=== PATIENT | female | born 1970 | race Caucasian/White ===

== ENCOUNTER 2016-09-11 15:08 | Inpatient (IN) | payer OTHER ==
[2016-09-11 17:09] VITALS: BMI 20.9
--- NOTE | 2016-09-11 19:53 | HP ---
[id number] Extend Anxiety: 4-Mod. Anxious/Guarded Agitation: 4-Moderately Restless Paroxysmal Sweats: 1-Minimal Palms Moist Orientation: 1-Uncertain about Date Tacttile Disturbances: 2-Mild Itch/Numbness/Burn Auditory Disturbances: 0-None Visual Disturbances: 0-None Headache: 0-None Present CIWA-Ar Total Score: 18 Admission ROS BHS - HPI Chief Complaint: WITHDRAWAL SX Allergies/Adverse Reactions: Allergies Allergy/AdvReac Type Severity Reaction Status Date / Time No Known Allergies Allergy Verified 09/11/16 19:53 History of Present Illness: 46 YEARS OLD FEMALE WITH LONG HISTORY OF ALCOHOL NICOTINE DEPENDENCE ON METHADONE PROGRAM 50 MG LAST DOSE 09/11/16 IS ADMITTED TO DETOX Exam Limitations: No Limitations - Ebola screening Have you traveled outside of the country in the last 21 days: No Have you had contact with anyone from an Ebola affected area: No Have you been sick,other than usual withdrawal symptoms: No - Review of Systems Constitutional: Chills, Loss of Appetite, Changes in sleep, Unintentional Wgt. Loss EENT: reports: No Symptoms Reported Respiratory: reports: No Symptoms reported Cardiac: reports: No Symptoms Reported GI: reports: Nausea, Poor Appetite, Poor Fluid Intake, Vomiting, Indigestion, Abdominal cramping : reports: No Symptoms Reported Musculoskeletal: reports: Back Pain Integumentary: reports: Other (MULTIPLE SUPERFICIAL SKIN ABRASION ON HANDS FACE FROM PHYSICAL ALTERACATION WEEK+ AGO) Neuro: reports: No Symptoms reported Endocrine: reports: No Symptoms Reported Hematology: reports: No Symptoms Reported Psychiatric: reports: Judgement Intact, Depressed Other Systems: Reviewed and Negative Patient History - Patient Medical History Hx Anemia: No Hx Asthma: No Hx Chronic Obstructive Pulmonary Disease (COPD): No Hx Cancer: No Hx Cardiac Disorders: No Hx Congestive Heart Failure: No Hx Hypertension: No Hx Hypercholesterolemia: No Hx Pacemaker: No HX Cerebrovascular Accident: No Hx Seizures: No Hx Dementia: No Hx Diabetes: No Hx Gastrointestinal Disorders: No Hx Liver Disease: No Hx Genitourinary Disorders: No Hx Sexually Transmitted Disorders: No Hx Renal Disease (ESRD): No Hx Thyroid Disease: No Hx Human Immunodeficiency Virus (HIV): No (11/13) Hx Hepatitis C: No Hx Depression: No Hx Suicide Attempt: No Hx Bipolar Disorder: Yes (AND ANXIETY DISORDER) Hx Schizophrenia: No - Patient Surgical History Past Surgical History: No Hx Neurologic Surgery: No Hx Cataract Extraction: No Hx Cardiac Surgery: No Hx Lung Surgery: No Hx Breast Surgery: No Hx Breast Biopsy: No Hx Abdominal Surgery: No Hx Appendectomy: No Hx Cholecystectomy: No Hx Genitourinary Surgery: No Hx Section: No Hx Orthopedic Surgery: No Hx Hysterectomy: No - PPD History Previous Implant?: Yes Documented Results: Negative w/proof Implanted On Prior [facility] Admission?: Yes Date: 04/04/16 PPD to be Administered?: No - Reproductive History Patient is a Female of Child Bearing Age (11 -55 yrs old): Yes Last Menstrual Period: 08/10/16 Patient : No - Smoking Cessation Smoking history: Never smoked Have you smoked in the past 12 months: No Aproximately how many cigarettes per day: 10 Cigars Per Day: 0 Hx Chewing Tobacco Use: No Initiated information on smoking cessation: Yes 'Breaking Loose' booklet given: 09/11/16 - Substance & Tx. History Hx Alcohol Use: Yes Hx Substance Use: Yes Substance Use Type: Alcohol, Cocaine, Opiates Hx Substance Use Treatment: Yes - Substances Abused Alcohol Route: Oral Frequency: Daily Amount used: PINT VOLKA + Age of first use: 15 Date of Last Use: 09/11/16 Family Disease History - Family Disease History Family Disease History: Other: Sister (dsa,alcohol) Admission Physical Exam S - Vital Signs Vital Signs: Vital Signs - 24 hr 09/11/16 17:05 Temperature 98.2 F Pulse Rate 75 Respiratory 20 Rate Blood Pressure 106/62 - Physical General Appearance: Yes: Appropriately Dressed, Mild Distress, Thin, Tremorous, Irritable, Sweating, Anxious HEENTM: Yes: Hearing grossly Normal, Normal ENT Inspection, Normocephalic, Normal Voice Respiratory: Yes: Chest Non-Tender, Lungs Clear, Normal Breath Sounds, No Respiratory Distress, No Accessory Muscle Use Neck: Yes: Supple, Trachea in good position Breast: Yes: Breasts Symetrical Cardiology: Yes: Regular Rhythm, Regular Rate, S1, S2 Abdominal: Yes: Non Tender, Soft Genitourinary: Yes: Within Normal Limits Back: Yes: Normal Inspection, Vertebral Tenderness Musculoskeletal: Yes: full range of Motion, Gait Steady Extremities: Yes: Normal Range of Motion, Non-Tender, Tremors, Other (multiple superficial scratches on face hands and neck) Neurological: Yes: Alert, Motor Strength 5/5, Normal Response, Depressed Affect Integumentary: Yes: Warm, Moist Lymphatic: Yes: Within Normal Limits - Diagnostic (1) Nicotine dependence Current Visit: Yes Status: Acute Qualifiers: Nicotine product type: cigarettes Substance use status: uncomplicated Qualified Code(s): F17.210 - Nicotine dependence, cigarettes, uncomplicated (2) Alcohol dependence with uncomplicated withdrawal Current Visit: Yes Status: Acute (3) Bipolar II disorder Current Visit: Yes Status: Suspected (4) Weight decreased Current Visit: Yes Status: Acute (5) Abrasion of skin Current Visit: Yes Status: Acute (6) Methadone maintenance therapy patient Current Visit: Yes Status: Acute Comment: 50 MG WAITING FOR VERIFICATION Cleared for Admission S - Detox or Rehab [facility] Level of Care: Medically Managed Detox Regimen/Protocol: Librium [facility] Breath Alcohol Content Breath Alcohol Content: 0 Urine Pregancy Test - Result Urine Test Results: Negative- NO Line Present Urine Drug Screen - Results Drug Screen Negative: No Urine Drug Screen Results: LASHON-Cocaine, OPI-Opiates, MTD-Methadone
[2016-09-11] MEDS ORDERED: guaiFENesin/D-METHORPHAN HB 10 ML UNIT-DOSE CUPS PO PRN (19:55)
[2016-09-11] MEDS ORDERED: MAGNESIUM HYDROX 2400MG/30ML ORAL SUSPENSION 30 ML CUP PO PRN (19:55)
[2016-09-11] MEDS ORDERED: MAG HYDROX/AL HYDROX/SIMETH 30 ML UNIT-DOSE CUP PO PRN (19:55)
[2016-09-11] MEDS ORDERED: MAGNESIUM CITRATE 300 ML BOTTLE PO PRN (19:55)
[2016-09-11] MEDS ORDERED: MENTHOL/PHENOL 1 EACH UD MM PRN (19:55)
[2016-09-11] MEDS ORDERED: diphenhydrAMINE HCL 50 MG CAPSULE PO PRN (19:55)
[2016-09-11] MEDS ORDERED: chlordiazePOXIDE HCL 25 MG CAPSULE PO PRN (19:55)
[2016-09-11] MEDS ORDERED: chlordiazePOXIDE HCL 25 MG CAPSULE PO ONE (19:55)
[2016-09-11] MEDS ORDERED: NICOTINE POLACRILEX 2 MG GUM BC PRN (19:55)
[2016-09-11] MEDS ORDERED: ACETAMINOPHEN 325 MG TABLET (FP) PO PRN (19:55)
[2016-09-11] MEDS ORDERED: P-EPHED 60MG/TRIPROLIDI 2.5MG TABLET PO PRN (19:55)
[2016-09-11] MEDS ORDERED: IBUPROFEN 400 MG TABLET (FP) PO PRN (19:55)
[2016-09-11] MEDS ORDERED: LOPERAMIDE HCL 2 MG CAPSULE PO PRN (19:55)
[2016-09-11] MEDS ORDERED: COLLOIDAL OATMEAL 1 BAR EACH TP PRN (19:56)
[2016-09-11] MEDS ORDERED: ONDANSETRON *ODT* 4 MG TABLET SL PRN (19:57)
[2016-09-11] MEDS: THIAMINE HCL 100 MG TABLET (FP) PO SCH (22:43)
[2016-09-11] MEDS: chlordiazePOXIDE HCL 25 MG CAPSULE PO SCH (22:43)
[2016-09-11] MEDS: BACITRACIN 0.9 GM PACKET TP PRN (22:43)
[2016-09-11] MEDS: MINERAL OIL/PETROLAT/WATER TOPICAL CREAM 113 GM JAR TP SCH (22:45)
[2016-09-11 23:18] LABS: URINE APPEARANCE CLEAR; URINE BILIRUBIN NEGATIVE (NEGATIVE); URINE BLOOD NEGATIVE (NEGATIVE); URINE COLOR YELLOW; URINE GLUCOSE (UA) NEGATIVE (NEGATIVE); URINE KETONE NEGATIVE (NEGATIVE); URINE LEUK ESTERASE NEGATIVE (NEGATIVE); URINE NITRITE NEGATIVE (NEGATIVE); URINE PROTEIN NEGATIVE (NEGATIVE); URINE UROBILINOGEN 1.0 E.U/dl E.U./dl (0.2-1.0)
[2016-09-12] MEDS: chlordiazePOXIDE HCL 25 MG CAPSULE PO SCH ×4 (06:30→22:33)
--- NOTE | 2016-09-12 07:16 | PN ---
S Progress Note Note: ASKED TO SEE PT 46 Y.O FEMALE HERE FOR ALCOHOLISM NOW WITH FEVER 101.7. C/O CHILLS, SHAKES. DENIES ANY OTHER COMPLAINTS, RECENT ILLNESSES, OR SIGNIFICANT PMHX. SHE IS ALSO OPIOID DEPENDENT ON MMTP. PENDING DOES VERIFICATION. SEEN LYING IN BED NAD IRRITABLE, AWAKE, ALERT, ORIENTED HEENT: MMM, PHARNXY CLEAR NO REDNESS, NO LAD, LUNGS: CTA B/L; 02 SAT 97 % RA ABD: BS X4 SOFT NT Vital Signs - 24 hr 09/11/16 09/11/16 09/12/16 17:05 21:46 00:30 Temperature 98.2 F 98.4 F Pulse Rate 75 64 Respiratory 20 16 18 Rate Blood Pressure 106/62 100/57 09/12/16 09/12/16 03:30 06:00 Temperature 101.7 F H Pulse Rate 83 Respiratory 18 16 Rate Blood Pressure 98/65 A- FEVER, WITHDRAWAL SX' P- C/W DETOX MOTRIN/TYLENOL ORDERED PO HYDRATION MONITOR FOR CLOSELY
[2016-09-12] MEDS ORDERED: METHADONE HCL 10 MG TABLET PO ONE (09:06)
[2016-09-12] MEDS ORDERED: METHADONE 40 MG, METHADONE 10 MG PO ONE (09:25)
--- NOTE | 2016-09-12 09:39 | CONSULT ---
[facility] Psychiatric Consult - Data Date of interview: 09/12/16 Admission source: [facility] Identifying data: This is 46 years old female with history of Bipolar disorder, Schizoaffective disorder, intoxicated with: Alcohol, Cocaine, Opioids and Nicotine, history of psychiatric hospitalizations Substance Abuse History: Drug Screen Negative: No. Urine Drug Screen Results: LASHON-Cocaine, OPI-Opiates, MTD-Methadone. - Smoking Cessation. Smoking history : Never smoked. Have you smoked in the past 12 months: No. Aproximately how many cigarettes per day: 10. Cigars Per Day: 0. Hx Chewing Tobacco Use: No. Initiated information on smoking cessation: Yes. 'Breaking Loose' booklet given : 09/11/16. - Substance & Tx. History. Hx Alcohol Use: Yes. Hx Substance Use : Yes. Substance Use Type: Alcohol, Cocaine, Opiates. Hx Substance Use Treatment: Yes. - Substances Abused. Alcohol. Route: Oral. Frequency: Daily. Amount used: PINT VOLKA +. Age of first use: 15. Date of Last Use: 06/18 Medical History: Syncope history, Weight loss history,. MMTP 80mg/day. Psychiatric History: Patient reports history bof Bipolar Disorder withb recent 2017 psychiatric admsision [facility]ilo villavicencio, reports currently btaking: Seroquel 150mg po qhs. Prozac 29mg poqd Physical/Sexual Abuse/Trauma History: Denies Additional Comment: Drug Screen Negative: No. Urine Drug Screen Results: LASHON- Cocaine, OPI-Opiates, MTD-Methadone Mental Status Exam - Mental Status Exam Alert and Oriented to: Person Cognitive Function: Fair Patient Appearance: Unkempt Mood: Sad Affect: Flat Patient Behavior: Sedated Speech Pattern: Delayed Voice Loudness: Normal Thought Process: Circumstantial Thought Disorder: Being Controlled Hallucinations: Denies Suicidal Ideation: Denies Homicidal Ideation: Denies Insight/Judgement: Fair Sleep: Difficulty falling asleep Appetite: Weight loss Muscle strength/Tone: Normal Gait/Station: Normal Additional Comments: Seroquel 150mg po qhs. Prozac 29mg poqd Psychiatric Findings - Problem List ([place] 1, 2,3) (1) Weight decreased Current Visit: No Status: Acute (2) Alcohol dependence Current Visit: No Status: Chronic (3) Anxiety disorder Current Visit: No Status: Chronic (4) Bipolar disorder Current Visit: No Status: Chronic (5) Cocaine dependence Current Visit: No Status: Chronic Qualifiers: Substance use status: in withdrawal Qualified Code(s): F14.23 - Cocaine dependence with withdrawal (6) Depression Current Visit: No Status: Chronic (7) Drug-induced mood disorder Current Visit: No Status: Chronic (8) Methadone maintenance therapy patient Current Visit: No Status: Chronic Comment: 80 MG WAITING FOR VERIFICATION (9) Nicotine dependence Current Visit: No Status: Chronic Qualifiers: Nicotine product type: cigarettes Substance use status: uncomplicated Qualified Code(s): F17.210 - Nicotine dependence, cigarettes, uncomplicated (10) Opioid dependence Current Visit: No Status: Chronic (11) Opioid dependence on agonist therapy Current Visit: No Status: Chronic (12) Schizoaffective disorder Current Visit: No Status: Chronic (13) Schizophrenia Current Visit: No Status: Chronic (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 Prozac 29mg poqd
[2016-09-12 10:01] LABS: MCH 30.2 pg (25.7-33.7); MCHC 33.4 g/dl (32.0-36.0); MEAN CELL VOLUME 90.3 fl (80-96); MEAN PLT VOLUME 7.2 fl (7.5-11.1); PLATELET COUNT 248 K/MM3 (134-434); RDW 14.1 % (11.6-15.6); WHITE BLOOD COUNT 6.6 K/mm3 (4.0-10.0)
[2016-09-12 10:23] LABS: ALBUMIN 2.9 g/dl (3.4-5.0); ALK PHOS 42 U/L (45-117); ANION GAP 8 (8-16); BILIRUBIN,TOTAL 0.1 mg/dL (0.2-1.0); CALCIUM 8.6 mg/dL (8.5-10.1); CO2 28 mmol/L (21-32); CREATININE 0.7 mg/dL (0.55-1.02); GLUCOSE,RANDOM 100 mg/dL (74-106); SGOT/AST 18 U/L (15-37); SGPT/ALT 17 U/L (12-78); TOT PROT 6.2 g/dl (6.4-8.2)
--- NOTE | 2016-09-12 10:23 | EKG ---
Test Reason : Blood Pressure : / mmHG Vent. Rate : 051 BPM Atrial Rate : 051 BPM P-R Int : 134 ms QRS Dur : 084 ms QT Int : 476 ms P-R-T Axes : 042 085 050 degrees QTc Int : 438 ms SINUS BRADYCARDIA OTHERWISE NORMAL ECG NO PREVIOUS ECGS AVAILABLE Confirmed by ANYA JEAN, BRITTNEY ([id number]) on 09/12/2016 10:23:39 AM Referred By: Confirmed By:BRITTNEY JOYNER MD
[2016-09-12 10:24] LABS: HIV 1 & 2 AB NEGATIVE; HIV 1 AGp24 NEGATIVE
[2016-09-12] MEDS: PRENATAL VITAMINS W/ FOLIC ACID TABLET (FP) PO SCH (10:35)
[2016-09-12] MEDS ORDERED: METHADONE HCL 10 MG TABLET ONE (10:36)
[2016-09-12] MEDS ORDERED: METHADONE HCL 40 MG DISPERSABLE TABLET ONE (10:36)
[2016-09-12] MEDS: FLUoxetine HCL 20 MG CAPSULE (FP) PO SCH (10:37)
[2016-09-12] MEDS: NICOTINE 14 MG/24 HOURS TOPICAL PATCH TD SCH (10:37)
--- NOTE | 2016-09-12 11:22 | PN ---
[facility] CIWA - CIWA Score Nausea/Vomitin Muscle Tremors: 2 Anxiety: 3 Agitation: 3 Paroxysmal Sweats: 3 Orientation: 0-Oriented Tacttile Disturbances: 2-Mild Itch/Numbness/Burn Auditory Disturbances: 0-None Visual Disturbances: 0-None Headache: 0-None Present CIWA-Ar Total Score: 15 [facility] Progress Note (SOAP) Subjective: interrupted sleep, sweats , body aches Objective: 09/12/16 11:18 Vital Signs Temperature 97.5 F L 09/12/16 10:24 Pulse Rate 83 09/12/16 10:24 Respiratory Rate 18 09/12/16 10:24 Blood Pressure 118/60 09/12/16 10:24 O2 Sat by Pulse Oximetry (%) Laboratory Tests 09/11/16 09/12/16 09/12/16 23:00 07:30 07:30 WBC 6.6 D RBC 3.92 Hgb 11.8 Hct 35.4 MCV 90.3 MCHC 33.4 RDW 14.1 Plt Count 248 MPV 7.2 L Sodium 140 Potassium 3.6 Chloride 104 Carbon Dioxide 28 Anion Gap 8 BUN 11 Creatinine 0.7 Creat Clearance w eGFR > 60 Random Glucose 100 Calcium 8.6 Total Bilirubin 0.1 L D AST 18 D ALT 17 D Alkaline Phosphatase 42 L Total Protein 6.2 L Albumin 2.9 L Urine Color Yellow Urine Appearance Clear Urine pH 6.0 Ur Specific [place] >= 1.030 Urine Protein Negative Urine Glucose (UA) Negative Urine Ketones Negative Urine Blood Negative Urine Nitrite Negative Urine Bilirubin Negative Urine Urobilinogen 1.0 e.u/dl Ur Leukocyte Esterase Negative RPR Titer HIV 1&2 Antibody Screen HIV P24 Antigen 09/12/16 09/12/16 07:30 07:30 WBC RBC Hgb Hct MCV MCHC RDW Plt Count MPV Sodium Potassium Chloride Carbon Dioxide Anion Gap BUN Creatinine Creat Clearance w eGFR Random Glucose Calcium Total Bilirubin AST ALT Alkaline Phosphatase Total Protein Albumin Urine Color Urine Appearance Urine pH Ur Specific [place] Urine Protein Urine Glucose (UA) Urine Ketones Urine Blood Urine Nitrite Urine Bilirubin Urine Urobilinogen Ur Leukocyte Esterase RPR Titer Nonreactive HIV 1&2 Antibody Screen Negative HIV P24 Antigen Negative pt aox3 in nad lying in bed 09/12/16 11:24 oral clear no exudate or eryhema lungs occas rhonchi cor rrr, w/o m r or gallop abd soft nontender , bs + generalized adenopathy Assessment: 09/12/16 11:19 withdrawl sx's fever 101.7 abrasion on nose Plan: cont detox increase fluids cxr bacitracin bid monitor temp.
[2016-09-12] MEDS: THIAMINE HCL 100 MG TABLET (FP) PO SCH (22:33)
[2016-09-12] MEDS: MINERAL OIL/PETROLAT/WATER TOPICAL CREAM 113 GM JAR TP SCH (22:35)
[2016-09-12] MEDS: QUEtiapine FUMARATE 50 MG TABLET PO SCH (23:38)
[2016-09-13] MEDS ORDERED: METHADONE HCL 10 MG TABLET ONE (04:15)
[2016-09-13] MEDS ORDERED: METHADONE HCL 40 MG DISPERSABLE TABLET ONE (04:15)
[2016-09-13] MEDS: METHADONE 40 MG, METHADONE 10 MG PO SCH (05:22)
[2016-09-13] MEDS: chlordiazePOXIDE HCL 25 MG CAPSULE PO SCH ×3 (05:22→17:55)
[2016-09-13] MEDS ORDERED: METHADONE HCL 40 MG DISPERSABLE TABLET PO SCH (06:00)
--- NOTE | 2016-09-13 09:48 | PN ---
S CIWA - CIWA Score Nausea/Vomitin Muscle Tremors: 2 Anxiety: 2 Agitation: 2 Paroxysmal Sweats: 2 Orientation: 0-Oriented Tacttile Disturbances: 1-Very Mild Itch/Numbness Auditory Disturbances: 0-None Visual Disturbances: 0-None Headache: 0-None Present CIWA-Ar Total Score: 11 [facility] Progress Note (SOAP) Subjective: sweats, interrupted sleep Objective: 09/13/16 09:48 Vital Signs Temperature 98.6 F 09/13/16 05:50 Pulse Rate 64 09/13/16 05:50 Respiratory Rate 16 09/13/16 05:50 Blood Pressure 106/60 09/13/16 05:50 O2 Sat by Pulse Oximetry (%) Laboratory Tests 09/11/16 09/12/16 09/12/16 23:00 07:30 07:30 WBC 6.6 D RBC 3.92 Hgb 11.8 Hct 35.4 MCV 90.3 MCHC 33.4 RDW 14.1 Plt Count 248 MPV 7.2 L Sodium 140 Potassium 3.6 Chloride 104 Carbon Dioxide 28 Anion Gap 8 BUN 11 Creatinine 0.7 Creat Clearance w eGFR > 60 Random Glucose 100 Calcium 8.6 Total Bilirubin 0.1 L D AST 18 D ALT 17 D Alkaline Phosphatase 42 L Total Protein 6.2 L Albumin 2.9 L Urine Color Yellow Urine Appearance Clear Urine pH 6.0 Ur Specific [place] >= 1.030 Urine Protein Negative Urine Glucose (UA) Negative Urine Ketones Negative Urine Blood Negative Urine Nitrite Negative Urine Bilirubin Negative Urine Urobilinogen 1.0 e.u/dl Ur Leukocyte Esterase Negative RPR Titer HIV 1&2 Antibody Screen HIV P24 Antigen 09/12/16 09/12/16 07:30 07:30 WBC RBC Hgb Hct MCV MCHC RDW Plt Count MPV Sodium Potassium Chloride Carbon Dioxide Anion Gap BUN Creatinine Creat Clearance w eGFR Random Glucose Calcium Total Bilirubin AST ALT Alkaline Phosphatase Total Protein Albumin Urine Color Urine Appearance Urine pH Ur Specific [place] Urine Protein Urine Glucose (UA) Urine Ketones Urine Blood Urine Nitrite Urine Bilirubin Urine Urobilinogen Ur Leukocyte Esterase RPR Titer Nonreactive HIV 1&2 Antibody Screen Negative HIV P24 Antigen Negative 09/13/16 14:47 pt aox3 in nad ambulating Assessment: 09/13/16 09:48 withdrawal sxs Plan: cont. detox increase fluids
[2016-09-13] MEDS: FLUoxetine HCL 20 MG CAPSULE (FP) PO SCH (11:07)
[2016-09-13] MEDS: NICOTINE 14 MG/24 HOURS TOPICAL PATCH TD SCH (11:07)
[2016-09-13] MEDS: PRENATAL VITAMINS W/ FOLIC ACID TABLET (FP) PO SCH (11:07)
[2016-09-13] MEDS: THIAMINE HCL 100 MG TABLET (FP) PO SCH (22:30)
[2016-09-13] MEDS: BACITRACIN 0.9 GM PACKET TP PRN (22:41)
[2016-09-13] MEDS: MINERAL OIL/PETROLAT/WATER TOPICAL CREAM 113 GM JAR TP SCH (22:41)
[2016-09-13] MEDS: QUEtiapine FUMARATE 50 MG TABLET PO SCH (22:42)
[2016-09-13] MEDS: chlordiazePOXIDE 5 MG CAPSULE PO SCH (22:42)
[2016-09-14] MEDS ORDERED: METHADONE HCL 10 MG TABLET ONE (04:38)
[2016-09-14] MEDS ORDERED: METHADONE HCL 40 MG DISPERSABLE TABLET ONE (04:39)
[2016-09-14] MEDS: METHADONE 40 MG, METHADONE 10 MG PO SCH (05:29)
[2016-09-14] MEDS: chlordiazePOXIDE 5 MG CAPSULE PO SCH ×3 (05:29→17:44)
--- NOTE | 2016-09-14 09:59 | PN ---
S Progress Note (SOAP) Subjective: ALERT,IRRITABLE,ANXIOUS,INTERRUPTED SLEEP Objective: 09/14/16 09:59 Vital Signs Temperature 98.4 F 09/14/16 06:19 Pulse Rate 71 09/14/16 06:19 Respiratory Rate 18 09/14/16 06:19 Blood Pressure 100/60 09/14/16 06:19 O2 Sat by Pulse Oximetry (%) Assessment: 09/14/16 09:59 WITHDRAWAL SYMPTOM Plan: CONTINUE DETOX,DISCHARGE IN AM
[2016-09-14] MEDS: FLUoxetine HCL 20 MG CAPSULE (FP) PO SCH (10:28)
[2016-09-14] MEDS: NICOTINE 14 MG/24 HOURS TOPICAL PATCH TD SCH (10:28)
[2016-09-14] MEDS: PRENATAL VITAMINS W/ FOLIC ACID TABLET (FP) PO SCH (10:28)
[2016-09-14] MEDS: THIAMINE HCL 100 MG TABLET (FP) PO SCH (22:55)
[2016-09-14] MEDS: QUEtiapine FUMARATE 50 MG TABLET PO SCH (22:55)
[2016-09-14] MEDS: MINERAL OIL/PETROLAT/WATER TOPICAL CREAM 113 GM JAR TP SCH (23:15)
[2016-09-14] MEDS: chlordiazePOXIDE HCL 10 MG CAPSULE PO SCH (23:19)
[2016-09-15] MEDS ORDERED: METHADONE HCL 40 MG DISPERSABLE TABLET ONE (06:19)
[2016-09-15] MEDS ORDERED: METHADONE HCL 10 MG TABLET ONE (06:19)
[2016-09-15] MEDS: METHADONE 40 MG, METHADONE 10 MG PO SCH (06:20)
[2016-09-15] MEDS: chlordiazePOXIDE HCL 10 MG CAPSULE PO SCH ×2 (06:21→11:59)
[2016-09-15 06:36] VITALS: PULSE 62; TEMP 97.7
--- NOTE | 2016-09-15 09:00 | PN ---
S Progress Note (SOAP) Subjective: ALERT,NO COMPLAINT Objective: 09/15/16 08:58 Vital Signs Temperature 97.7 F 09/15/16 06:00 Pulse Rate 62 09/15/16 06:00 Respiratory Rate 16 09/15/16 06:00 Blood Pressure 99/60 09/15/16 06:00 O2 Sat by Pulse Oximetry (%) Assessment: 09/15/16 08:59 DETOX COMPLETED,NO WITHDRAWAL SYMPTOM Plan: DISCHARGE TODAY,FOLLOW UP WITH AFTER CARE PROGRAM ARRANGEMENT
--- NOTE | 2016-09-15 09:01 | DS ---
[facility] Detox Discharge Summary Admission Date: 09/11/16 Discharge Date: 09/15/16 - History Present History: Alcohol Dependence, Cocaine Dependence, MMTP Additional Comments: FOLLOW UP WITH AFTER CARE PROGRAM ARRANGEMENT Pertinent Past History: MMTP BIPOLAR 2 DISORDER - Physical Exam Results Vital Signs: Vital Signs Temperature 97.7 F 09/15/16 06:00 Pulse Rate 62 09/15/16 06:00 Respiratory Rate 16 09/15/16 06:00 Blood Pressure 99/60 09/15/16 06:00 O2 Sat by Pulse Oximetry (%) Pertinent Admission Physical Exam Findings: WITHDRAWAL SYMPTOM - Treatment Hospital Course: Detox Protocol Followed, Detoxed Safely, Responded well, Discharged Condition Good Patient has Accepted a Rehab Referral to: DECLINED - Medication Discharge Medications: Ambulatory Orders Quetiapine Fumarate [Seroquel -] 100 mg PO HS 02/27/15 Methadone [Dolophine -] 80 mg PO DAILY 04/02/16 Fluoxetine HCl [Prozac -] 20 mg PO DAILY #30 capsule 04/30/16 Quetiapine Fumarate [Seroquel -] 150 mg PO HS #90 tablet 04/30/16 Fluoxetine HCl [Prozac -] 20 mg PO DAILY #30 capsule 09/12/16 Quetiapine Fumarate "Xr" [Seroquel Xr -] 150 mg PO HS #30 tab 09/12/16 - AMA Did Patient Leave Against Medical Advice: No
[2016-09-15 10:24] VITALS: BP 103/55
[2016-09-15] MEDS: PRENATAL VITAMINS W/ FOLIC ACID TABLET (FP) PO SCH (11:58)
[2016-09-15] MEDS: FLUoxetine HCL 20 MG CAPSULE (FP) PO SCH (11:58)
[2016-09-15] MEDS: NICOTINE 14 MG/24 HOURS TOPICAL PATCH TD SCH (11:58)
== END 2016-09-15 12:27 | disposition other institution (70) | DRG 773 ==
LOC: YASAS 15:08 → Y6N 20:07
PROVIDERS: ADMIT Internal Medicine Addiction Medicine; ATTEND Internal Medicine Addiction Medicine
PROC: HZ2ZZZZ Detoxification Services for Substance Abuse Treatment (ICD-10-PCS; principal; 2016-09-11)
DX: F10.230 Alcohol dependence with withdrawal, uncomplicated (principal); F11.20 Opioid dependence, uncomplicated; F14.20 Cocaine dependence, uncomplicated; F17.210 Nicotine dependence, cigarettes, uncomplicated; F31.81 Bipolar II disorder; F41.9 Anxiety disorder, unspecified; F32.9 Major depressive disorder, single episode, unspecified; F19.24 Other psychoactive substance dependence with psychoactive substance-induced mood disorder; F25.9 Schizoaffective disorder, unspecified; F20.9 Schizophrenia, unspecified; R50.9 Fever, unspecified; Z87.898 Personal history of other specified conditions; Z86.79 Personal history of other diseases of the circulatory system; Z59.0 Homelessness; S00.31XD Abrasion of nose, subsequent encounter; X58.XXXD Exposure to other specified factors, subsequent encounter
CPT/HCPCS: 36415; 71020-TC; 80053; 81003; 85027; 86593; 87389; 93005; 93010

== ENCOUNTER 2017-09-27 11:13 | Inpatient (IN) | payer OTHER ==
[2017-09-27 11:52] VITALS: BMI 20.7
--- NOTE | 2017-09-27 16:50 | HP ---
COWS - Scale Resting Pulse: 0= NM 80 or Below Sweatin=Flushed/Facial Moisture Restless Observation: 3= Extraneous Movement Pupil Size: 1= Pupils >than Normal Bone or Joint Aches: 2= Severe Diffuse Aches Runny Nose/ Eye Tearin= Runny Nose/Eyes GI Upset > 30mins: 5=Frequent Vomit/Diarrhea Tremor Observation: 2= Slight Tremor Visible Yawning Observation: 0= None Anxiety or Irritability: 2=Irritable/Anxious Goose Flesh Skin: 3=Piloerection COWS Score: 22 CIWA Score - CIWA Score Nausea/Vomitin-Int. Nausea w/Dry Heave Muscle Tremors: 4-Moderate,w/Arms Extend Anxiety: 4-Mod. Anxious/Guarded Agitation: 0-Normal Activity Paroxysmal Sweats: 4-Forehead w/Sweat Beads Orientation: 0-Oriented Tacttile Disturbances: 3-Moderate Itch/Numb/Burn (left foot) Auditory Disturbances: 0-None Visual Disturbances: 0-None Headache: 2-Mild CIWA-Ar Total Score: 21 Admission ROS S - HPI Chief Complaint: withdrawal symptoms Allergies/Adverse Reactions: Allergies Allergy/AdvReac Type Severity Reaction Status Date / Time No Known Allergies Allergy Verified 09/27/17 15:03 History of Present Illness: 47 yo female with hx of Heroin, Crack, oxycontin, and alcohol dependence, reports no other medical condition. Last Rehab was at [facility], July 2017. Longest period of sobriety 16 months. Exam Limitations: No Limitations - Ebola screening Have you traveled outside of the country in the last 21 days: No Have you had contact with anyone from an Ebola affected area: No Have you been sick,other than usual withdrawal symptoms: No Do you have a fever: No - Review of Systems Constitutional: Chills, Loss of Appetite, Unintentional Wgt. Loss (reports 30lb in the past 60 days) EENT: reports: Blurred Vision (wears reading glasses), Nose Congestion, Other ( missing teeth) Respiratory: reports: No Symptoms reported Cardiac: reports: No Symptoms Reported, Lightheadedness GI: reports: Diarrhea, Nausea, Vomiting, Other (heart burn) : reports: No Symptoms Reported Musculoskeletal: reports: Joint Pain Integumentary: reports: Sweating Neuro: reports: Headache, Tremors Endocrine: reports: Increased Thirst, Change in Weight Hematology: reports: Anemia Psychiatric: reports: Orientated x3, Anxious, Depressed Other Systems: Reviewed and Negative Patient History - Patient Medical History Hx Anemia: Yes Hx Asthma: No Hx Chronic Obstructive Pulmonary Disease (COPD): No Hx Cancer: No Hx Cardiac Disorders: No Hx Congestive Heart Failure: No Hx Hypertension: No Hx Hypercholesterolemia: No Hx Pacemaker: No HX Cerebrovascular Accident: No Hx Seizures: No Hx Dementia: No Hx Diabetes: No Hx Gastrointestinal Disorders: Yes (GERD ) Hx Liver Disease: No Hx Genitourinary Disorders: No Hx Sexually Transmitted Disorders: No Hx Renal Disease (ESRD): No Hx Thyroid Disease: No Hx Human Immunodeficiency Virus (HIV): No (11/13) Hx Hepatitis C: No Hx Depression: Yes (Reports was admitted to [facility] for Psych ) Hx Suicide Attempt: No Hx Bipolar Disorder: Yes (AND ANXIETY DISORDER) Hx Schizophrenia: No - Patient Surgical History Past Surgical History: No Hx Neurologic Surgery: No Hx Cataract Extraction: No Hx Cardiac Surgery: No Hx Lung Surgery: No Hx Breast Surgery: No Hx Breast Biopsy: No Hx Abdominal Surgery: No Hx Appendectomy: No Hx Cholecystectomy: No Hx Genitourinary Surgery: No Hx Section: No Hx Orthopedic Surgery: No Hx Hysterectomy: No Anesthesia Reaction: No - PPD History Previous Implant?: Yes Documented Results: Negative w/proof Implanted On Prior [facility] Admission?: Yes Date: 04/04/16 Results: 0mm - Reproductive History Patient is a Female of Child Bearing Age (11 -55 yrs old): No Last Menstrual Period: 09/10/17 Patient : No - Smoking Cessation Smoking history: Current every day smoker Have you smoked in the past 12 months: Yes Aproximately how many cigarettes per day: 20 Cigars Per Day: 0 Hx Chewing Tobacco Use: No Initiated information on smoking cessation: Yes 'Breaking Loose' booklet given: 09/27/17 - Substance & Tx. History Hx Alcohol Use: Yes Substance Use Type: Alcohol, Heroin, Opiates Hx Substance Use Treatment: Yes ([facility] Jul 2017) - Substances Abused Heroin Route: Inhalation Frequency: Daily Amount used: 7 bags Age of first use: 23 Date of Last Use: 09/26/17 Alcohol Route: Oral Frequency: Daily Amount used: vodka(less than a pint) Age of first use: 23 Date of Last Use: 09/26/17 Crack Route: Smoking Frequency: Daily Amount used: $200 Age of first use: 39 Date of Last Use: 09/24/17 Oxycontin Route: Oral Frequency: 3-6 times per week Amount used: 2 pills Age of first use: 23 Date of Last Use: 09/23/17 Family Disease History - Family Disease History Family Disease History: Heart Disease: Father (, [place]), Other: Father, Mother (alieve, Kidney diease, dialysis ), Sister (dsa,alcohol) Admission Physical Exam [facility] - Vital Signs Vital Signs: Vital Signs - 24 hr 09/27/17 11:49 Temperature 96.8 F L Pulse Rate 78 Respiratory 18 Rate Blood Pressure 122/70 - Physical General Appearance: Yes: Thin, Tremorous, Sweating, Anxious HEENTM: Yes: Hearing grossly Normal, Normal ENT Inspection, Normocephalic, Normal Voice, Pharynx Normal, Tm's normal Respiratory: Yes: Chest Non-Tender, Lungs Clear, Normal Breath Sounds, No Respiratory Distress, No Accessory Muscle Use Neck: Yes: No masses,lesions,Nodules, Trachea in good position Breast: Yes: Breast Exam Deferred Cardiology: Yes: Within Normal Limits, Regular Rhythm, Regular Rate, S1, S2 Abdominal: Yes: Normal Bowel Sounds, Non Tender, Flat, Soft Genitourinary: Yes: Within Normal Limits (reports no urinary symptoms) Back: Yes: Within Normal Limits, Normal Inspection Musculoskeletal: Yes: full range of Motion, Gait Steady, Pelvis Stable Extremities: Yes: Normal Capillary Refill, Normal Inspection, Normal Range of Motion, Non-Tender Neurological: Yes: paunch trimmer II-XII NML intact, Fully Oriented, Alert, Motor Strength 5/5, Normal Mood/Affect, Normal Response Integumentary: Yes: Normal Color, Dry, Warm, Other (dry mucous membranes, poor skin turgor) Lymphatic: Yes: Within Normal Limits - Diagnostic (1) Opioid dependence with withdrawal Current Visit: Yes Status: Acute (2) Dehydration Current Visit: Yes Status: Acute (3) Alcohol dependence with uncomplicated withdrawal Current Visit: No Status: Acute (4) Weight decreased Current Visit: No Status: Acute (5) Anxiety disorder Current Visit: No Status: Chronic (6) Cocaine dependence Current Visit: No Status: Chronic Qualifiers: Substance use status: in withdrawal Qualified Code(s): F14.23 - Cocaine dependence with withdrawal (7) Depression Current Visit: No Status: Chronic (8) Nicotine dependence Current Visit: No Status: Chronic Qualifiers: Nicotine product type: cigarettes Substance use status: uncomplicated Qualified Code(s): F17.210 - Nicotine dependence, cigarettes, uncomplicated Cleared for Admission S - Detox or Rehab [facility] Level of Care: Medically Managed Detox Regimen/Protocol: Methadone/Librium [facility] Breath Alcohol Content Breath Alcohol Content: 0 Urine Pregancy Test - Result Urine Test Results: Negative- NO Line Present Urine Drug Screen - Results Drug Screen Negative: No Urine Drug Screen Results: LASHON-Cocaine, OPI-Opiates
[2017-09-27] MEDS ORDERED: guaiFENesin/D-METHORPHAN HB 10 ML UNIT-DOSE CUPS PO PRN (17:04)
[2017-09-27] MEDS ORDERED: IBUPROFEN 400 MG TABLET (FP) PO PRN (17:04)
[2017-09-27] MEDS ORDERED: ACETAMINOPHEN 325 MG TABLET (FP) PO PRN (17:04)
[2017-09-27] MEDS ORDERED: LOPERAMIDE HCL 2 MG CAPSULE PO PRN (17:04)
[2017-09-27] MEDS ORDERED: MAGNESIUM HYDROX 2400MG/30ML ORAL SUSPENSION 30 ML CUP PO PRN (17:04)
[2017-09-27] MEDS ORDERED: P-EPHED 60MG/TRIPROLIDI 2.5MG TABLET PO PRN (17:04)
[2017-09-27] MEDS ORDERED: MAG HYDROX/AL HYDROX/SIMETH 30 ML UNIT-DOSE CUP PO PRN (17:04)
[2017-09-27] MEDS ORDERED: MENTHOL/PHENOL 1 EACH UD MM PRN (17:04)
[2017-09-27] MEDS ORDERED: MAGNESIUM CITRATE 300 ML BOTTLE PO PRN (17:04)
[2017-09-27] MEDS ORDERED: chlordiazePOXIDE HCL 25 MG CAPSULE PO PRN (17:04)
[2017-09-27] MEDS ORDERED: chlordiazePOXIDE HCL 25 MG CAPSULE PO ONE (17:45)
[2017-09-27] MEDS ORDERED: METHADONE HCL 10 MG TABLET (FOR DETOX USE ONLY) PO ONE ×2 (17:45→23:00)
[2017-09-27] MEDS: NICOTINE 21 MG/24 HOURS TOPICAL PATCH TD SCH (19:00)
[2017-09-27] MEDS: chlordiazePOXIDE HCL 25 MG CAPSULE PO SCH (22:29)
[2017-09-27] MEDS: THIAMINE HCL 100 MG TABLET (FP) PO SCH (22:29)
[2017-09-27 23:24] LABS: URINE APPEARANCE SLCLOUDY; URINE BILIRUBIN NEGATIVE (NEGATIVE); URINE BLOOD NEGATIVE (NEGATIVE); URINE COLOR LTYELLOW; URINE GLUCOSE (UA) NEGATIVE (NEGATIVE); URINE KETONE NEGATIVE (NEGATIVE); URINE LEUK ESTERASE NEGATIVE (NEGATIVE); URINE NITRITE NEGATIVE (NEGATIVE); URINE PROTEIN NEGATIVE (NEGATIVE); URINE UROBILINOGEN NEGATIVE mg/dL (0.2-1.0)
[2017-09-28] MEDS: chlordiazePOXIDE HCL 25 MG CAPSULE PO SCH ×4 (05:18→22:15)
[2017-09-28] MEDS ORDERED: METHADONE HCL 10 MG TABLET (FOR DETOX USE ONLY) PO SCH (10:00)
[2017-09-28 10:05] LABS: HEMATOCRIT 41.4 % (32.4-45.2); HEMOGLOBIN 13.9 GM/dL (10.7-15.3); MCH 31.2 pg (25.7-33.7); MCHC 33.6 g/dl (32.0-36.0); MEAN CELL VOLUME 92.8 fl (80-96); MEAN PLT VOLUME 7.4 fl (7.5-11.1); PLATELET COUNT 381 K/MM3 (134-434); RBC 4.46 M/mm3 (3.60-5.2); RDW 13.8 % (11.6-15.6); WHITE BLOOD COUNT 8.3 K/mm3 (4.0-10.0)
[2017-09-28 10:16] LABS: CHLORIDE 102 mmol/L (98-107); POTASSIUM 3.9 mmol/L (3.5-5.1); SODIUM 139 mmol/L (136-145)
[2017-09-28] MEDS: PRENATAL VITAMINS W/ FOLIC ACID TABLET (FP) PO SCH (10:25)
[2017-09-28] MEDS: NICOTINE 21 MG/24 HOURS TOPICAL PATCH TD SCH (10:25)
[2017-09-28 10:32] LABS: ALBUMIN 3.8 g/dl (3.4-5.0); ALK PHOS 47 U/L (45-117); ANION GAP 8 (8-16); BILIRUBIN,TOTAL 0.4 mg/dL (0.2-1.0); BLOOD UREA NITROGEN 13 mg/dL (7-18); CALCIUM 8.8 mg/dL (8.5-10.1); CO2 29 mmol/L (21-32); CREATININE 0.8 mg/dL (0.55-1.02); GLUCOSE,RANDOM 75 mg/dL (74-106); SGOT/AST 14 U/L (15-37); SGPT/ALT 20 U/L (12-78); TOT PROT 7.6 g/dl (6.4-8.2)
--- NOTE | 2017-09-28 12:08 | PN ---
S CIWA - CIWA Score Nausea/Vomitin Muscle Tremors: 4-Moderate,w/Arms Extend Anxiety: 3 Agitation: 4-Moderately Restless Paroxysmal Sweats: 3 Orientation: 0-Oriented Tacttile Disturbances: 0-None Auditory Disturbances: 0-None Visual Disturbances: 0-None Headache: 0-None Present CIWA-Ar Total Score: 17 BHS COWS - Scale Resting Pulse: 1= [place] 81-100 Sweatin=Flushed/Facial Moisture Restless Observation: 3= Extraneous Movement Pupil Size: 0= Normal to Room Light Bone or Joint Aches: 1= Mild Discomfort Runny Nose/ Eye Tearin= Nasal Congestion GI Upset > 30mins: 2= Nausea/Diarrhea Tremor Observation of Outstretched Hands: 2= Slight Tremor Visible Yawning Observation: 1= 1-2x During Session Anxiety or Irritability: 2=Irritable/Anxious Goose Flesh Skin: 0=Smooth Skin COWS Score: 15 S Progress Note (SOAP) Subjective: shakes sweats diarrhea Objective: 09/28/17 12:06 no acute distress Vital Signs Temperature 96.4 F L 09/28/17 11:12 Pulse Rate 90 09/28/17 11:12 Respiratory Rate 20 09/28/17 11:12 Blood Pressure 99/61 09/28/17 11:12 O2 Sat by Pulse Oximetry (%) Laboratory Last Values WBC 8.3 K/mm3 (4.0-10.0) 09/28/17 06:06 RBC 4.46 M/mm3 (3.60-5.2) 09/28/17 06:06 Hgb 13.9 GM/dL (10.7-15.3) D 09/28/17 06:06 Hct 41.4 % (32.4-45.2) D 09/28/17 06:06 MCV 92.8 fl (80-96) 09/28/17 06:06 MCH 31.2 pg (25.7-33.7) 09/28/17 06:06 MCHC 33.6 g/dl (32.0-36.0) 09/28/17 06:06 RDW 13.8 % (11.6-15.6) 09/28/17 06:06 Plt Count 381 K/MM3 (134-434) D 09/28/17 06:06 MPV 7.4 fl (7.5-11.1) L 09/28/17 06:06 Sodium 139 mmol/L (136-145) 09/28/17 06:06 Potassium 3.9 mmol/L (3.5-5.1) 09/28/17 06:06 Chloride 102 mmol/L (98-107) 09/28/17 06:06 Carbon Dioxide 29 mmol/L (21-32) 09/28/17 06:06 Anion Gap 8 (8-16) 09/28/17 06:06 BUN 13 mg/dL (7-18) 09/28/17 06:06 Creatinine 0.8 mg/dL (0.55-1.02) 09/28/17 06:06 Creat Clearance w eGFR > 60 (>60) 09/28/17 06:06 Random Glucose 75 mg/dL (74-106) 09/28/17 06:06 Calcium 8.8 mg/dL (8.5-10.1) 09/28/17 06:06 Total Bilirubin 0.4 mg/dL (0.2-1.0) D 09/28/17 06:06 AST 14 U/L (15-37) L 09/28/17 06:06 ALT 20 U/L (12-78) 09/28/17 06:06 Alkaline Phosphatase 47 U/L (45-117) 09/28/17 06:06 Total Protein 7.6 g/dl (6.4-8.2) 09/28/17 06:06 Albumin 3.8 g/dl (3.4-5.0) 09/28/17 06:06 Urine Color Ltyellow 09/27/17 23:13 Urine Appearance Slcloudy 09/27/17 23:13 Urine pH 8.0 (5.0-8.0) D 09/27/17 23:13 Ur Specific [place] 1.013 (1.001-1.035) 09/27/17 23:13 Urine Protein Negative (NEGATIVE) 09/27/17 23:13 Urine Glucose (UA) Negative (NEGATIVE) 09/27/17 23:13 Urine Ketones Negative (NEGATIVE) 09/27/17 23:13 Urine Blood Negative (NEGATIVE) 09/27/17 23:13 Urine Nitrite Negative (NEGATIVE) 09/27/17 23:13 Urine Bilirubin Negative (NEGATIVE) 09/27/17 23:13 Urine Urobilinogen Negative mg/dL (0.2-1.0) 09/27/17 23:13 Ur Leukocyte Esterase Negative (NEGATIVE) 09/27/17 23:13 RPR Titer Nonreactive (NONREACTIVE) 09/28/17 06:06 noted, hydration Assessment: 09/28/17 12:07 withdrawal sx Plan: continue detox increase fluids
--- NOTE | 2017-09-28 12:28 | EKG ---
Test Reason : Blood Pressure : / mmHG Vent. Rate : 071 BPM Atrial Rate : 071 BPM P-R Int : 150 ms QRS Dur : 082 ms QT Int : 414 ms P-R-T Axes : 057 084 054 degrees QTc Int : 449 ms NORMAL SINUS RHYTHM NORMAL ECG WHEN COMPARED WITH ECG OF 11-SEP-2016 20:53, NO SIGNIFICANT CHANGE WAS FOUND Confirmed by MD MIHIR, QAMAR ([id number]) on 09/28/2017 12:27:36 PM Referred By: Confirmed By:QAMAR ASH MD
[2017-09-28] MEDS: NICOTINE POLACRILEX 2 MG GUM BC PRN (14:48)
--- NOTE | 2017-09-28 17:42 | CONSULT ---
[facility] Psychiatric Consult - Data Date of interview: 09/28/17 Admission source: [facility] Identifying data: Readmisssion to [facility] for this 47 y/o female seeking detox treatment on for alcohol,opioid and cocaine (crack) dependence).Patient is single,mother of one,homeless,unemployed and supported on food stamps. Substance Abuse History: Confirmed by patient in this session.See details in current [facility] report : Smoking history: Current every day smoker. Have you smoked in the past 12 months: Yes. Aproximately how many cigarettes per day: 20. Cigars Per Day: 0. Hx Chewing Tobacco Use: No. Initiated information on smoking cessation: Yes. 'Breaking Loose' booklet given: 09/27/17. - Substance & Tx. History. Hx Alcohol Use: Yes. Substance Use Type: Alcohol, Heroin, Opiates. Hx Substance Use Treatment: Yes ([facility] Jul 2017). - Substances Abused. Heroin. Route: Inhalation. Frequency: Daily. Amount used: 7 bags. Age of first use: 23. Date of Last Use: 09/26/17. Alcohol. Route: Oral. Frequency: Daily. Amount used: vodka(less than a pint). Age of first use: 23. Date of Last Use: 09/26/17. Crack. Route: Smoking. Frequency: Daily. Amount used: $200. Age of first use: 39. Date of Last Use: 09/24/17. Oxycontin. Route: Oral. Frequency: 3-6 times per week. Amount used: 2 pills. Age of first use: 23. Date of Last Use: 09/23/17 Medical History: GERD and anemia. Psychiatric History: History of four psychiatric hospitalizations at [facility] in [facility].Diagnosed with Bipolar Disorder.Prescribed seroquel 150 mg/hs + prozac 20 mg/day.Last took these medications three weeks ago (no OPD care providers).Ms Gilbert denies history of suicide attempts. Physical/Sexual Abuse/Trauma History: Patient denies. Additional Comment: Urine Drug Screen Results: LASHON-Cocaine, OPI-Opiates.Noted. Mental Status Exam - Mental Status Exam Alert and Oriented to: Time, Place, Person Cognitive Function: Good Patient Appearance: Unkempt, Disheveled Mood: Nervous, Withdrawn, Anxious Affect: Mood Congruent, Constricted Patient Behavior: Fatigued, Appropriate, Cooperative Speech Pattern: Clear, Appropriate Voice Loudness: Normal Thought Process: Intact, Goal Oriented Thought Disorder: Not Present Hallucinations: Denies Suicidal Ideation: Denies Homicidal Ideation: Denies Insight/Judgement: Poor Sleep: Poorly, Difficulty falling asleep Appetite: Good Muscle strength/Tone: Normal Gait/Station: Normal Psychiatric Findings - Problem List ([place] 1, 2,3) (1) Alcohol dependence with uncomplicated withdrawal Current Visit: Yes Status: Acute (2) Opioid dependence with withdrawal Current Visit: Yes Status: Acute (3) Cocaine dependence Current Visit: Yes Status: Acute Qualifiers: Substance use status: in withdrawal Qualified Code(s): F14.23 - Cocaine dependence with withdrawal (4) Nicotine dependence Current Visit: Yes Status: Acute Qualifiers: Nicotine product type: cigarettes Substance use status: uncomplicated Qualified Code(s): F17.210 - Nicotine dependence, cigarettes, uncomplicated (5) Schizoaffective disorder Current Visit: Yes Status: Chronic (6) Insomnia Current Visit: Yes Status: Acute - Initial Treatment Plan Initial Treatment Plan: Previous records from [facility] : revisited.Pychoeducation and support provided in this session.Detoxification in progress.Sleep hygiene discussed.Medications : seroquel 100 mg po hs + prozac 20 mg po daily.Side effects/benefits of both drugs are discussed with the patient.Ms Gilbert consented (verbally) to follow this plan of care.Observation.
[2017-09-28] MEDS: QUEtiapine FUMARATE 100 MG TABLET (FP) PO SCH (22:15)
[2017-09-28] MEDS: THIAMINE HCL 100 MG TABLET (FP) PO SCH (22:15)
[2017-09-29] MEDS: chlordiazePOXIDE HCL 25 MG CAPSULE PO SCH ×3 (05:44→17:48)
--- NOTE | 2017-09-29 09:20 | PN ---
[facility] CIWA - CIWA Score Nausea/Vomitin-No Nausea/No Vomiting Muscle Tremors: 4-Moderate,w/Arms Extend Anxiety: 3 Agitation: 4-Moderately Restless Paroxysmal Sweats: 1-Minimal Palms Moist Orientation: 0-Oriented Tacttile Disturbances: 0-None Auditory Disturbances: 0-None Visual Disturbances: 0-None Headache: 0-None Present CIWA-Ar Total Score: 12 S COWS - Scale Resting Pulse: 1= [place] 81-100 Sweatin= Chills/Flushing Restless Observation: 1= Difficult to Sit Still Pupil Size: 1= Pupils >than Normal Bone or Joint Aches: 1= Mild Discomfort Runny Nose/ Eye Tearin= Nasal Congestion GI Upset > 30mins: 1= Stomach Cramp Tremor Observation of Outstretched Hands: 1= Tremor [place], Not Seen Yawning Observation: 2= >3x During Session Anxiety or Irritability: 0= None Goose Flesh Skin: 0=Smooth Skin COWS Score: 10 S Progress Note (SOAP) Subjective: joints ache anxiety restlessness GI upset Objective: 09/29/17 09:20 Vital Signs Temperature 97.9 F 09/29/17 06:00 Pulse Rate 78 09/29/17 06:00 Respiratory Rate 16 09/29/17 06:00 Blood Pressure 115/66 09/29/17 06:00 O2 Sat by Pulse Oximetry (%) Laboratory Last Values WBC 8.3 K/mm3 (4.0-10.0) 09/28/17 06:06 RBC 4.46 M/mm3 (3.60-5.2) 09/28/17 06:06 Hgb 13.9 GM/dL (10.7-15.3) D 09/28/17 06:06 Hct 41.4 % (32.4-45.2) D 09/28/17 06:06 MCV 92.8 fl (80-96) 09/28/17 06:06 MCH 31.2 pg (25.7-33.7) 09/28/17 06:06 MCHC 33.6 g/dl (32.0-36.0) 09/28/17 06:06 RDW 13.8 % (11.6-15.6) 09/28/17 06:06 Plt Count 381 K/MM3 (134-434) D 09/28/17 06:06 MPV 7.4 fl (7.5-11.1) L 09/28/17 06:06 Sodium 139 mmol/L (136-145) 09/28/17 06:06 Potassium 3.9 mmol/L (3.5-5.1) 09/28/17 06:06 Chloride 102 mmol/L (98-107) 09/28/17 06:06 Carbon Dioxide 29 mmol/L (21-32) 09/28/17 06:06 Anion Gap 8 (8-16) 09/28/17 06:06 BUN 13 mg/dL (7-18) 09/28/17 06:06 Creatinine 0.8 mg/dL (0.55-1.02) 09/28/17 06:06 Creat Clearance w eGFR > 60 (>60) 09/28/17 06:06 Random Glucose 75 mg/dL (74-106) 09/28/17 06:06 Calcium 8.8 mg/dL (8.5-10.1) 09/28/17 06:06 Total Bilirubin 0.4 mg/dL (0.2-1.0) D 09/28/17 06:06 AST 14 U/L (15-37) L 09/28/17 06:06 ALT 20 U/L (12-78) 09/28/17 06:06 Alkaline Phosphatase 47 U/L (45-117) 09/28/17 06:06 Total Protein 7.6 g/dl (6.4-8.2) 09/28/17 06:06 Albumin 3.8 g/dl (3.4-5.0) 09/28/17 06:06 Urine Color Ltyellow 09/27/17 23:13 Urine Appearance Slcloudy 09/27/17 23:13 Urine pH 8.0 (5.0-8.0) D 09/27/17 23:13 Ur Specific [place] 1.013 (1.001-1.035) 09/27/17 23:13 Urine Protein Negative (NEGATIVE) 09/27/17 23:13 Urine Glucose (UA) Negative (NEGATIVE) 09/27/17 23:13 Urine Ketones Negative (NEGATIVE) 09/27/17 23:13 Urine Blood Negative (NEGATIVE) 09/27/17 23:13 Urine Nitrite Negative (NEGATIVE) 09/27/17 23:13 Urine Bilirubin Negative (NEGATIVE) 09/27/17 23:13 Urine Urobilinogen Negative mg/dL (0.2-1.0) 09/27/17 23:13 Ur Leukocyte Esterase Negative (NEGATIVE) 09/27/17 23:13 RPR Titer Nonreactive (NONREACTIVE) 09/28/17 06:06 Hepatitis C Antibody <0.1 s/co ratio (0.0-0.9) 09/28/17 06:06 lab noted Assessment: 09/29/17 09:20 withdrawal sx Plan: continue detox
[2017-09-29] MEDS: METHADONE HCL 5 MG TABLET (FOR DETOX USE ONLY) PO SCH (10:31)
[2017-09-29] MEDS: FLUoxetine HCL 20 MG CAPSULE (FP) PO SCH (10:31)
[2017-09-29] MEDS: NICOTINE 21 MG/24 HOURS TOPICAL PATCH TD SCH (10:31)
[2017-09-29] MEDS: PRENATAL VITAMINS W/ FOLIC ACID TABLET (FP) PO SCH (10:31)
[2017-09-29] MEDS: chlordiazePOXIDE 5 MG CAPSULE PO SCH (22:25)
[2017-09-29] MEDS: THIAMINE HCL 100 MG TABLET (FP) PO SCH (22:25)
[2017-09-29] MEDS: QUEtiapine FUMARATE 100 MG TABLET (FP) PO SCH (22:25)
[2017-09-29] MEDS: hydrOXYzine PAMOATE 50 MG CAPSULE (FP) PO PRN (22:25)
[2017-09-30] MEDS: chlordiazePOXIDE 5 MG CAPSULE PO SCH ×3 (05:18→17:55)
--- NOTE | 2017-09-30 10:21 | PN ---
BHS Progress Note (SOAP) Subjective: tremor anxiety sweat irritable agitation Objective: 09/30/17 10:20 Vital Signs Temperature 98.1 F 09/30/17 06:17 Pulse Rate 86 09/30/17 06:17 Respiratory Rate 19 09/30/17 06:17 Blood Pressure 101/70 09/30/17 06:17 O2 Sat by Pulse Oximetry (%) Laboratory Last Values WBC 8.3 K/mm3 (4.0-10.0) 09/28/17 06:06 RBC 4.46 M/mm3 (3.60-5.2) 09/28/17 06:06 Hgb 13.9 GM/dL (10.7-15.3) D 09/28/17 06:06 Hct 41.4 % (32.4-45.2) D 09/28/17 06:06 MCV 92.8 fl (80-96) 09/28/17 06:06 MCH 31.2 pg (25.7-33.7) 09/28/17 06:06 MCHC 33.6 g/dl (32.0-36.0) 09/28/17 06:06 RDW 13.8 % (11.6-15.6) 09/28/17 06:06 Plt Count 381 K/MM3 (134-434) D 09/28/17 06:06 MPV 7.4 fl (7.5-11.1) L 09/28/17 06:06 Sodium 139 mmol/L (136-145) 09/28/17 06:06 Potassium 3.9 mmol/L (3.5-5.1) 09/28/17 06:06 Chloride 102 mmol/L (98-107) 09/28/17 06:06 Carbon Dioxide 29 mmol/L (21-32) 09/28/17 06:06 Anion Gap 8 (8-16) 09/28/17 06:06 BUN 13 mg/dL (7-18) 09/28/17 06:06 Creatinine 0.8 mg/dL (0.55-1.02) 09/28/17 06:06 Creat Clearance w eGFR > 60 (>60) 09/28/17 06:06 Random Glucose 75 mg/dL (74-106) 09/28/17 06:06 Calcium 8.8 mg/dL (8.5-10.1) 09/28/17 06:06 Total Bilirubin 0.4 mg/dL (0.2-1.0) D 09/28/17 06:06 AST 14 U/L (15-37) L 09/28/17 06:06 ALT 20 U/L (12-78) 09/28/17 06:06 Alkaline Phosphatase 47 U/L (45-117) 09/28/17 06:06 Total Protein 7.6 g/dl (6.4-8.2) 09/28/17 06:06 Albumin 3.8 g/dl (3.4-5.0) 09/28/17 06:06 Urine Color Ltyellow 09/27/17 23:13 Urine Appearance Slcloudy 09/27/17 23:13 Urine pH 8.0 (5.0-8.0) D 09/27/17 23:13 Ur Specific [place] 1.013 (1.001-1.035) 09/27/17 23:13 Urine Protein Negative (NEGATIVE) 09/27/17 23:13 Urine Glucose (UA) Negative (NEGATIVE) 09/27/17 23:13 Urine Ketones Negative (NEGATIVE) 09/27/17 23:13 Urine Blood Negative (NEGATIVE) 09/27/17 23:13 Urine Nitrite Negative (NEGATIVE) 09/27/17 23:13 Urine Bilirubin Negative (NEGATIVE) 09/27/17 23:13 Urine Urobilinogen Negative mg/dL (0.2-1.0) 09/27/17 23:13 Ur Leukocyte Esterase Negative (NEGATIVE) 09/27/17 23:13 RPR Titer Nonreactive (NONREACTIVE) 09/28/17 06:06 Hepatitis C Antibody <0.1 s/co ratio (0.0-0.9) 09/28/17 06:06 HIV 1&2 Antibody Screen Negative 09/29/17 07:30 HIV P24 Antigen Negative 09/29/17 07:30 lab noted Assessment: 09/30/17 10:20 withdrawal sx Plan: continue detox
[2017-09-30] MEDS: METHADONE HCL 5 MG TABLET (FOR DETOX USE ONLY) PO SCH (10:45)
[2017-09-30] MEDS: FLUoxetine HCL 20 MG CAPSULE (FP) PO SCH (10:46)
[2017-09-30] MEDS: PRENATAL VITAMINS W/ FOLIC ACID TABLET (FP) PO SCH (10:46)
[2017-09-30] MEDS: NICOTINE POLACRILEX 2 MG GUM BC PRN (10:53)
[2017-09-30] MEDS: NICOTINE 21 MG/24 HOURS TOPICAL PATCH TD SCH (10:53)
[2017-09-30] MEDS: hydrOXYzine PAMOATE 50 MG CAPSULE (FP) PO PRN (22:08)
[2017-09-30] MEDS: QUEtiapine FUMARATE 100 MG TABLET (FP) PO SCH (22:08)
[2017-09-30] MEDS: THIAMINE HCL 100 MG TABLET (FP) PO SCH (22:08)
[2017-09-30] MEDS: chlordiazePOXIDE HCL 10 MG CAPSULE PO SCH (22:08)
[2017-10-01] MEDS: chlordiazePOXIDE HCL 10 MG CAPSULE PO SCH ×3 (07:46→17:19)
--- NOTE | 2017-10-01 09:44 | PN ---
BHS Progress Note (SOAP) Subjective: nausea, sweats, interrupted sleep, anxiety, tremors Objective: 10/01/17 09:43 Vital Signs - 24 hr 09/30/17 09/30/17 09/30/17 10:59 15:26 17:53 Temperature 97.9 F 98.2 F 98.4 F Pulse Rate 88 96 H 85 Respiratory 18 18 16 Rate Blood Pressure 119/60 136/79 113/59 09/30/17 10/01/17 10/01/17 21:53 00:30 03:30 Temperature 98.4 F Pulse Rate 81 Respiratory 16 18 18 Rate Blood Pressure 103/69 10/01/17 06:26 Temperature 97.9 F Pulse Rate 83 Respiratory 18 Rate Blood Pressure 94/55 Laboratory Tests 09/27/17 09/28/17 09/28/17 23:13 06:06 06:06 WBC 8.3 RBC 4.46 Hgb 13.9 D Hct 41.4 D MCV 92.8 MCH 31.2 MCHC 33.6 RDW 13.8 Plt Count 381 D MPV 7.4 L Sodium Potassium Chloride Carbon Dioxide Anion Gap BUN Creatinine Creat Clearance w eGFR Random Glucose Calcium Total Bilirubin AST ALT Alkaline Phosphatase Total Protein Albumin Urine Color Ltyellow Urine Appearance Slcloudy Urine pH 8.0 D Ur Specific [place] 1.013 Urine Protein Negative Urine Glucose (UA) Negative Urine Ketones Negative Urine Blood Negative Urine Nitrite Negative Urine Bilirubin Negative Urine Urobilinogen Negative Ur Leukocyte Esterase Negative RPR Titer Hepatitis C Antibody <0.1 HIV 1&2 Antibody Screen HIV P24 Antigen 09/28/17 09/28/17 09/29/17 06:06 06:06 07:30 WBC RBC Hgb Hct MCV MCH MCHC RDW Plt Count MPV Sodium 139 Potassium 3.9 Chloride 102 Carbon Dioxide 29 Anion Gap 8 BUN 13 Creatinine 0.8 Creat Clearance w eGFR > 60 Random Glucose 75 Calcium 8.8 Total Bilirubin 0.4 D AST 14 L ALT 20 Alkaline Phosphatase 47 Total Protein 7.6 Albumin 3.8 Urine Color Urine Appearance Urine pH Ur Specific [place] Urine Protein Urine Glucose (UA) Urine Ketones Urine Blood Urine Nitrite Urine Bilirubin Urine Urobilinogen Ur Leukocyte Esterase RPR Titer Nonreactive Hepatitis C Antibody HIV 1&2 Antibody Screen Negative HIV P24 Antigen Negative Assessment: 10/01/17 09:44 withdrawal sx, cont detox, fluids, encourage ambualtion, ensure
[2017-10-01] MEDS ORDERED: METHADONE HCL 10 MG TABLET (FOR DETOX USE ONLY) PO SCH (10:00)
[2017-10-01] MEDS: NICOTINE 21 MG/24 HOURS TOPICAL PATCH TD SCH (10:47)
[2017-10-01] MEDS: PRENATAL VITAMINS W/ FOLIC ACID TABLET (FP) PO SCH (10:47)
[2017-10-01] MEDS: FLUoxetine HCL 20 MG CAPSULE (FP) PO SCH (10:47)
[2017-10-01] MEDS: NICOTINE POLACRILEX 2 MG GUM BC PRN (10:50)
[2017-10-01] MEDS ORDERED: COLLOIDAL OATMEAL 1 BAR EACH TP PRN (14:26)
[2017-10-01] MEDS: THIAMINE HCL 100 MG TABLET (FP) PO SCH (22:16)
[2017-10-01] MEDS: QUEtiapine FUMARATE 100 MG TABLET (FP) PO SCH (22:16)
[2017-10-02] MEDS ORDERED: METHADONE HCL 5 MG TABLET (FOR DETOX USE ONLY) PO SCH (06:00)
[2017-10-02 06:22] VITALS: BP 110/51; PULSE 65; TEMP 97.4
--- NOTE | 2017-10-02 09:46 | DS ---
[facility] Detox Discharge Summary Admission Date: 09/27/17 Discharge Date: 10/02/17 - History Present History: Alcohol Dependence, Opioid Dependence - Physical Exam Results Vital Signs: Vital Signs Temperature 97.4 F L 10/02/17 06:21 Pulse Rate 65 10/02/17 06:21 Respiratory Rate 16 10/02/17 06:21 Blood Pressure 110/51 10/02/17 06:21 O2 Sat by Pulse Oximetry (%) Pertinent Admission Physical Exam Findings: withdrawal sx Vital Signs Temperature 97.4 F L 10/02/17 06:21 Pulse Rate 65 10/02/17 06:21 Respiratory Rate 16 10/02/17 06:21 Blood Pressure 110/51 10/02/17 06:21 O2 Sat by Pulse Oximetry (%) Laboratory Last Values WBC 8.3 K/mm3 (4.0-10.0) 09/28/17 06:06 RBC 4.46 M/mm3 (3.60-5.2) 09/28/17 06:06 Hgb 13.9 GM/dL (10.7-15.3) D 09/28/17 06:06 Hct 41.4 % (32.4-45.2) D 09/28/17 06:06 MCV 92.8 fl (80-96) 09/28/17 06:06 MCH 31.2 pg (25.7-33.7) 09/28/17 06:06 MCHC 33.6 g/dl (32.0-36.0) 09/28/17 06:06 RDW 13.8 % (11.6-15.6) 09/28/17 06:06 Plt Count 381 K/MM3 (134-434) D 09/28/17 06:06 MPV 7.4 fl (7.5-11.1) L 09/28/17 06:06 Sodium 139 mmol/L (136-145) 09/28/17 06:06 Potassium 3.9 mmol/L (3.5-5.1) 09/28/17 06:06 Chloride 102 mmol/L (98-107) 09/28/17 06:06 Carbon Dioxide 29 mmol/L (21-32) 09/28/17 06:06 Anion Gap 8 (8-16) 09/28/17 06:06 BUN 13 mg/dL (7-18) 09/28/17 06:06 Creatinine 0.8 mg/dL (0.55-1.02) 09/28/17 06:06 Creat Clearance w eGFR > 60 (>60) 09/28/17 06:06 Random Glucose 75 mg/dL (74-106) 09/28/17 06:06 Calcium 8.8 mg/dL (8.5-10.1) 09/28/17 06:06 Total Bilirubin 0.4 mg/dL (0.2-1.0) D 09/28/17 06:06 AST 14 U/L (15-37) L 09/28/17 06:06 ALT 20 U/L (12-78) 09/28/17 06:06 Alkaline Phosphatase 47 U/L (45-117) 09/28/17 06:06 Total Protein 7.6 g/dl (6.4-8.2) 09/28/17 06:06 Albumin 3.8 g/dl (3.4-5.0) 09/28/17 06:06 Urine Color Ltyellow 09/27/17 23:13 Urine Appearance Slcloudy 09/27/17 23:13 Urine pH 8.0 (5.0-8.0) D 09/27/17 23:13 Ur Specific [place] 1.013 (1.001-1.035) 09/27/17 23:13 Urine Protein Negative (NEGATIVE) 09/27/17 23:13 Urine Glucose (UA) Negative (NEGATIVE) 09/27/17 23:13 Urine Ketones Negative (NEGATIVE) 09/27/17 23:13 Urine Blood Negative (NEGATIVE) 09/27/17 23:13 Urine Nitrite Negative (NEGATIVE) 09/27/17 23:13 Urine Bilirubin Negative (NEGATIVE) 09/27/17 23:13 Urine Urobilinogen Negative mg/dL (0.2-1.0) 09/27/17 23:13 Ur Leukocyte Esterase Negative (NEGATIVE) 09/27/17 23:13 RPR Titer Nonreactive (NONREACTIVE) 09/28/17 06:06 Hepatitis C Antibody <0.1 s/co ratio (0.0-0.9) 09/28/17 06:06 HIV 1&2 Antibody Screen Negative 09/29/17 07:30 HIV P24 Antigen Negative 09/29/17 07:30 lab noted - Treatment Hospital Course: Detox Protocol Followed, Detoxed Safely, Responded well, Discharged Condition Good, Rehab Referral Accepted - Medication Discharge Medications: Ambulatory Orders Fluoxetine HCl [Prozac -] 20 mg PO DAILY #30 capsule 10/11/16 Quetiapine Fumarate [Seroquel -] 150 mg PO HS #90 tablet 10/11/16 - Diagnosis (1) Alcohol dependence with uncomplicated withdrawal Current Visit: Yes Status: Acute (2) Opioid dependence with withdrawal Current Visit: Yes Status: Acute - AMA Did Patient Leave Against Medical Advice: No
== END 2017-10-02 09:38 | disposition home or self-care (01) | DRG 773 ==
LOC: YASAS 11:13 → Y6N 15:42
PROVIDERS: ADMIT Internal Medicine; ATTEND Internal Medicine
PROC: HZ2ZZZZ Detoxification Services for Substance Abuse Treatment (ICD-10-PCS; principal; 2017-09-27)
DX: F11.23 Opioid dependence with withdrawal (principal); F10.230 Alcohol dependence with withdrawal, uncomplicated; F14.20 Cocaine dependence, uncomplicated; F17.210 Nicotine dependence, cigarettes, uncomplicated; F25.9 Schizoaffective disorder, unspecified; F41.9 Anxiety disorder, unspecified; F32.9 Major depressive disorder, single episode, unspecified; E86.0 Dehydration; G47.00 Insomnia, unspecified; K21.9 Gastro-esophageal reflux disease without esophagitis; Z87.898 Personal history of other specified conditions; Z59.0 Homelessness
CPT/HCPCS: 36415; 80053; 81003; 85027; 86593; 86803; 87389; 93005; 93010